=== PATIENT | male | born 2000 | race Caucasian/White ===

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

== ENCOUNTER 2018-08-16 18:01 | Emergency (ER) | payer BC ==
[~2018-08-16] VITALS: Ht 170.2 cm; Wt 78.0 kg
[2018-08-16 18:52] VITALS: Ht 170.2 cm; Wt 78.0 kg
[2018-08-16] MEDS ORDERED: KETOROLAC 30 MG INJ IM STA (21:26)
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
[2018-08-16] MEDS ORDERED: IBUP800T48 PO (23:42)
[2018-08-16 23:57] VITALS: BP 124/71; PULSE 50; RESP 18
== END 2018-08-16 23:57 | disposition home or self-care (01) ==
LOC: FTE 18:01
DX: R07.81 Pleurodynia (principal)
CPT/HCPCS: 71100; 96372; 99284; J1885